=== PATIENT | female | born 1955 | race Two or more races ===

== ENCOUNTER 2018-04-17 07:05 | Outpatient (CLI) | payer OTHER | END 2018-04-17 07:26 | disposition home or self-care (01) | LOC: NUCLEAR 07:05 | DX: K82.8 Other specified diseases of gallbladder (principal) | CPT/HCPCS: 78227; J2805; A9537 ==

== ENCOUNTER 2019-10-03 09:29 | Emergency (ER) | payer OTHER ==
[~2019-10-03] VITALS: Ht 167.6 cm; Wt 72.6 kg
[2019-10-03] MEDS ORDERED: CRESTOR5 MG (09:37)
[2019-10-03] MEDS ORDERED: SYNTHROID100 MCG (09:37)
== END 2019-10-03 20:05 | disposition home or self-care (01) ==
LOC: ER 09:29
DX: S83.242A Other tear of medial meniscus, current injury, left knee, initial encounter (principal); M25.562 Pain in left knee; X50.0XXA Overexertion from strenuous movement or load, initial encounter; Y93.A1 Activity, exercise machines primarily for cardiorespiratory conditioning; Y92.39 Other specified sports and athletic area as the place of occurrence of the external cause; Y99.8 Other external cause status
CPT/HCPCS: 73721

== ENCOUNTER 2021-02-19 10:41 | Outpatient (CLI) | payer OTHER ==
[~2021-02-19 10:41] MED LIST: CRESTOR5 MG; SYNTHROID100 MCG
== END 2021-02-19 10:46 | disposition home or self-care (01) ==
LOC: MAMO-SONO 10:41
PROVIDERS: ATTEND Internal Medicine
DX: Z12.31 Encounter for screening mammogram for malignant neoplasm of breast (principal); Z87.898 Personal history of other specified conditions; N64.4 Mastodynia; N63.0 Unspecified lump in unspecified breast

== ENCOUNTER → 2021-03-26 14:10 | Outpatient (CLI) | payer OTHER | END | disposition home or self-care (01) | LOC: NUCLEAR 14:10 | PROVIDERS: ATTEND Internal Medicine | DX: M81.0 Age-related osteoporosis without current pathological fracture (principal) ==